=== PATIENT | male | born 1990 | race Native Hawaiian/Other Pacific Islander ===

== ENCOUNTER 2019-04-04 16:49 | Emergency (ER) | payer BC ==
[~2019-04-04] VITALS: Ht 177.8 cm; Wt 113.4 kg
[2019-04-04 17:55] VITALS: BP 146/69; TEMP 98.2
== END 2019-04-04 17:55 | disposition home or self-care (01) ==
LOC: ED 16:49
DX: M17.12 Unilateral primary osteoarthritis, left knee (principal)
CPT/HCPCS: 96372; 99283; J1885

== ENCOUNTER 2022-01-28 10:53 | Emergency (ER) | payer BC ==
[~2022-01-28] VITALS: Ht 177.8 cm; Wt 117.9 kg
[2022-01-28 11:01] VITALS: TEMP 97.5
[2022-01-28 12:06] VITALS: BP 152/87
== END 2022-01-28 12:07 | disposition home or self-care (01) ==
LOC: ED 10:53
DX: K08.89 Other specified disorders of teeth and supporting structures (principal)
CPT/HCPCS: 96372; 99282; J1885